=== PATIENT | female | born 1995 | race Caucasian/White ===

== ENCOUNTER 2017-05-26 16:45 | Inpatient (IN) | payer MEDICAID ==
[~2017-05-26] VITALS: Ht 175.3 cm; Wt 95.3 kg
[2017-05-26] MEDS ORDERED: FERR-252 PO (17:07)
[2017-05-26] MEDS ORDERED: PREN-546 PO (17:07)
[2017-05-26 17:13] VITALS: BP 125/70
[2017-05-26 19:01] VITALS: BP 103/61
[2017-05-27] MEDS: LACTATED RINGERS 1,000 ML IV SCH ×2 (07:31→15:25)
--- NOTE | 2017-05-27 09:12 | NUR ---
PATIENT HAS BEEN SCREENED AND CATEGORIZED LOW NUTRITION RISK. PATIENT WILL BE SEEN WITHIN 7 DAYS OF ADMISSION. 06/02/[address]
[2017-05-27] MEDS ORDERED: ACETAMINOPHEN 325 MG TAB PO PRN (19:00)
[2017-05-27] MEDS ORDERED: METHYLERGONOVINE 0.2 MG/ML AMP IM PRN (20:05)
[2017-05-27] MEDS ORDERED: OXYTOCIN 20 UNITS in LACTATED RINGERS 1,000 ML IV SCH (20:05)
[2017-05-27] MEDS ORDERED: LACTATED RINGERS 1,000 ML IV SCH (20:05)
[2017-05-27] MEDS ORDERED: OXYTOCIN 10 UNITS/ML VIAL IM SCH (20:05)
[2017-05-27] MEDS ORDERED: CARBOPROST 250 MCG/ML AMP IM PRN (20:05)
[2017-05-27] MEDS ORDERED: AMPICILLIN 2,000 MG in NACL 0.9% MINI-BAG PLUS 100 ML IV SCH (20:05)
[2017-05-27] MEDS ORDERED: PROMETHAZINE 25 MG/ML VIAL IVP PRN (20:05)
[2017-05-27] MEDS ORDERED: NALBUPHINE HYDROCHLORIDE 10 MG/ML VIAL IVP PRN (20:05)
[2017-05-27] MEDS ORDERED: LACTATED RINGERS 500 ML IV SCH (20:05)
[2017-05-27] MEDS ORDERED: AMPICILLIN 2,000 MG VIAL ONE (21:13)
[2017-05-27 21:21] LABS: BASOPHILS # (AUTO) 0.1 K/uL (0.00-0.22); BASOPHILS % (AUTO) 1.1 % (0.0-2.0); EOSINOPHILS # (AUTO) 0.3 K/uL (0-0.4); EOSINOPHILS % (AUTO) 2.4 % (0.0-4.0); HEMATOCRIT 33.5 % (36-48); HEMOGLOBIN 10.9 g/dL (12.0-16.0); LYMPHOCYTES # (AUTO) 2.2 K/uL (2.5-16.5); LYMPHOCYTES % (AUTO) 19.3 % (20.5-51.1); MEAN CORPUSCULAR HEMOGLOBIN 28 pg (27-31); MEAN CORPUSCULAR HGB CONC 32 g/dL (33-37); MEAN CORPUSCULAR VOLUME 87 fL (80-94); MONOCYTES # (AUTO) 0.6 K/uL (0.8-1.0); MONOCYTES % (AUTO) 4.9 % (1.7-9.3); NEUTROPHILS # (AUTO) 8.3 K/uL (1.8-7.7); NEUTROPHILS % (AUTO) 72.3 % (42.2-75.2); PLATELET COUNT (AUTO) 207 K/uL (140-450); RED BLOOD CELL COUNT(AUTO) 3.87 MIL/uL (4.20-5.40); RED CELL DISTRIBUTION WIDTH 18.1 % (11.6-13.7); WHITE BLOOD COUNT (AUTO) 11.5 K/uL (4.8-10.8)
[2017-05-27 21:35] LABS: ANION GAP 14.6 (8-16); CARBON DIOXIDE 22.1 mmol/L (21-32); CREATININE 0.6 mg/dL (0.6-1.3); POTASSIUM 3.7 mmol/L (3.5-5.1)
[2017-05-27 21:40] LABS: APPEARANCE,URINE CLEAR (CLEAR); BILIRUBIN,URINE NEGATIVE (NEGATIVE); BLOOD, URINE NEGATIVE (NEGATIVE); COLOR,URINE YELLOW (YELLOW); LEUKOCYTE ESTERASE ,URINE 3+ (NEGATIVE); NITRITE, URINE NEGATIVE (NEGATIVE); UGLUCOSE NEGATIVE (NEGATIVE)
[2017-05-27 21:41] LABS: ALBUMIN 2.5 g/dL (3.4-5.0); TOTAL BILIRUBIN 0.2 mg/dL (0.0-1.0)
[2017-05-27 21:49] LABS: BARBITURATE, URINE NEG. ng/ml (NEG <=200); BENZODIAZEPINE, URINE NEG. ng/mL (NEG <=200); CANNABINOID, URINE NEG. ng/mL (NEG <=50); COCAINE, URINE NEG. ng/mL (NEG <=300); OPIATE, URINE NEG. ng/mL (NEG <=2000); PHENCYCLIDINE SCREEN,URINE NEG. ng/mL (NEG <=25)
[2017-05-27 21:53] LABS: RBC,URINE 0-5 (RARE) /HPF (0-5)
[2017-05-27 21:55] LABS: WBC,URINE 16-25 (MOD) /HPF (0-5)
[2017-05-27 21:57] LABS: YEAST,URINE Few /HPF (None Seen)
[2017-05-27 23:13] VITALS: BP 133/77
[2017-05-28] MEDS ORDERED: OXYTOCIN 10 UNITS/ML VIAL IM SCH (01:05)
[2017-05-28] MEDS: LACTATED RINGERS 1,000 ML IV SCH ×4 (01:15→20:57)
[2017-05-28] MEDS ORDERED: MISOPROSTOL 25 MCG TAB ONE (01:19)
[2017-05-28] MEDS ORDERED: MISOPROSTOL 25 MCG TAB VG SCH ×2 (04:00→08:00)
[2017-05-28] MEDS ORDERED: OXYTOCIN 20 UNITS/LR PREMIX 1,000 ML IV ONE (06:03)
[2017-05-28] MEDS ORDERED: BUPIVACAINE 0.125%/NS PREMIX 250 ML ONE (09:00)
[2017-05-28] MEDS ORDERED: AMPICILLIN 1,000 MG in NACL 0.9% 50 ML IV SCH (20:15)
[2017-05-28] MEDS ORDERED: AMPICILLIN 1,000 MG in NACL 0.9% MINI-BAG PLUS 50 ML IV SCH ×3 (20:38)
[2017-05-28] MEDS ORDERED: AMPICILLIN 1,000 MG VIAL ONE (20:49)
[2017-05-28] MEDS ORDERED: OXYTOCIN 10 UNITS/ML VIAL ONE (22:25)
[2017-05-28] MEDS ORDERED: METHYLERGONOVINE 0.2 MG TAB PO PRN (22:55)
[2017-05-28] MEDS ORDERED: SODIUM PHOSPHATE 118 ML ENEM RC PRN (22:55)
[2017-05-28] MEDS ORDERED: METHYLERGONOVINE 0.2 MG/ML AMP IM PRN (22:55)
[2017-05-28] MEDS ORDERED: OXYTOCIN 10 UNITS/ML VIAL IM PRN (22:55)
[2017-05-28] MEDS ORDERED: OXYTOCIN 10 UNITS/ML VIAL IM ONE (22:55)
[2017-05-28] MEDS ORDERED: oxyCODONE/APAP 5/325 MG 1 TAB TAB PO PRN (22:55)
[2017-05-28] MEDS ORDERED: TEMAZEPAM 15 MG CAP PO PRN (22:55)
[2017-05-28] MEDS ORDERED: BENZOCAINE/MENTHOL 20%-0.5% 60 GM CAN TP PRN (22:55)
[2017-05-28] MEDS ORDERED: MEASLES, MUMPS, AND RUBELLA 1 VIAL SQVAC PRN (22:55)
[2017-05-28] MEDS ORDERED: METHYLERGONOVINE 0.2 MG/ML AMP ONE (22:56)
[2017-05-29] MEDS ORDERED: AMPICILLIN 1,000 MG in NACL 0.9% 50 ML IV SCH ×2
[2017-05-29 09:50] LABS: HEMOGLOBIN 11.4 g/dL (12.0-16.0)
[2017-05-29] MEDS: HYDROcodone/APAP 5/325 MG 1 TAB TAB PO PRN (20:56)
[2017-05-29] MEDS ORDERED: DOCUSATE SOD/SENNA 50/8.6 MG 1 TAB PO SCH ×2 (21:00)
[2017-05-30] MEDS ORDERED: INFLUENZA VIRUS VACCINE QUAD 0.5 ML SYR IMVAC SCH (01:05)
[2017-05-30] MEDS: HYDROcodone/APAP 5/325 MG 1 TAB TAB PO PRN ×2 (01:25→08:17)
== END 2017-05-30 17:00 | disposition home or self-care (01) | DRG 560 ==
LOC: MLD 16:45 → MFCC 22:43 → OBSVTOIN 05-27 20:05 → MFCC 05-29 02:23
PROVIDERS: ADMIT Obstetrics & Gynecology; ATTEND Obstetrics & Gynecology
PROC: 10E0XZZ Delivery of Products of Conception, External Approach (ICD-10-PCS; principal; 2017-05-28)
PROC: 10907ZC Drainage of Amniotic Fluid, Therapeutic from Products of Conception, Via Natural or Artificial Opening (ICD-10-PCS; 2017-05-28)
PROC: 3E0P7VZ Introduction of Hormone into Female Reproductive, Via Natural or Artificial Opening (ICD-10-PCS; 2017-05-28)
PROC: 00HU33Z Insertion of Infusion Device into Spinal Canal, Percutaneous Approach (ICD-10-PCS; 2017-05-28)
PROC: 3E0R3BZ Introduction of Anesthetic Agent into Spinal Canal, Percutaneous Approach (ICD-10-PCS; 2017-05-28)
PROC: 3E0234Z Introduction of Serum, Toxoid and Vaccine into Muscle, Percutaneous Approach (ICD-10-PCS; 2017-05-30)
PROC: 3E0234Z Introduction of Serum, Toxoid and Vaccine into Muscle, Percutaneous Approach (ICD-10-PCS; 2017-05-30)
DX: O99.02 Anemia complicating childbirth (principal); D64.9 Anemia, unspecified; O99.52 Diseases of the respiratory system complicating childbirth; J45.909 Unspecified asthma, uncomplicated; Z37.0 Single live birth; Z3A.38 38 weeks gestation of pregnancy; Z23 Encounter for immunization; Z83.3 Family history of diabetes mellitus
CPT/HCPCS: G0378 ×27; 36415; 51702; 59409; 76819; 80053; 80305; 81001; 85018; 85025; 86592; 86886; 86900; 86901; 87086; 87340; 87653-90; 90658; 90715; J0290; J2210; J2590; J3490; J7120; Q0092